=== PATIENT | female | born 1980 | race Caucasian/White ===

== ENCOUNTER → 2020-07-25 16:15 | Outpatient (BNVA) | payer OTHER, SELFPAY | PROVIDERS: Visit Provider Nurse Practitioner Family | DX: Z11.59 Encounter for screening for other viral diseases (principal) | CPT/HCPCS: 87635 ==

== ENCOUNTER → 2022-01-17 10:47 | Outpatient (BNVA) | payer MEDICAID, SELFPAY | PROVIDERS: Visit Provider Obstetrics & Gynecology | DX: Z34.90 Encounter for supervision of normal pregnancy, unspecified, unspecified trimester (principal) | CPT/HCPCS: 80307; 84315; 84443; 85025; 86592; 86762; 86803; 86850; 86900; 87077; 87086; 87184; 87340 ==

== ENCOUNTER → 2022-01-31 09:09 | Outpatient (BNVA) | payer MEDICAID, SELFPAY | PROVIDERS: Visit Provider Obstetrics & Gynecology | DX: O09.899 Supervision of other high risk pregnancies, unspecified trimester (principal); R87.619 Unspecified abnormal cytological findings in specimens from cervix uteri; Z3A.00 Weeks of gestation of pregnancy not specified | CPT/HCPCS: 84315; 87077; 87086; 87184 ==

== ENCOUNTER → 2022-02-14 09:07 | Outpatient (BNVA) | payer MEDICAID, OTHER, SELFPAY | PROVIDERS: Visit Provider Obstetrics & Gynecology | DX: O09.899 Supervision of other high risk pregnancies, unspecified trimester (principal) | CPT/HCPCS: 84315; 87077; 87086; 87184 ==

== ENCOUNTER 2022-03-21 17:17 | Outpatient (CLI) | payer MEDICAID, SELFPAY ==
[2022-03-21 17:20] VITALS: BMI 26.6
[2022-03-21 17:33] VITALS: BP 125/64; PULSE 86
[2022-03-21 17:35] VITALS: BP 121/69; PULSE 86
[2022-03-21 17:46] VITALS: RESP 16
--- NOTE | 2022-03-21 17:46 | USR_ITS ---
PROCEDURE INFORMATION: Exam: US , Limited Exam date and time: 03/21/2022 6:59 PM Age: 41 years old Clinical indication: Lmp or gestational age (in weeks): 20w 6d; Antepartum complications; Bleeding; ; Additional info: Placenta evaluation, leonardo, cervical length, please note distance of placenta to cervix. TECHNIQUE: Imaging protocol: Real-time ultrasound of the maternal uterus with image documentation. Exam focused on the clinical indication. COMPARISON: US OB <= 14 weeks fetus [facility] 01/10/2022 11:57 AM FINDINGS: Gestation: Single intrauterine , activity was not included on provided images. Placenta: Placenta appears somewhat low in position suggesting possible marginal placenta previa, consider follow-up exam for reassessment. Amniotic fluid index: Amniotic fluid index normal at 17.7. MATERNAL: Cervix: Cervix measures 4.4 cm in length as seen on series 1, image 83 with some fluid in the cervix suggesting possible cervical incompetence. US/US OB limited [id number] IMPRESSION: 1. Amniotic fluid index normal at 17.7. 2. Single intrauterine , activity was not included on provided images. 3. Cervix measures 4.4 cm in length as seen on series 1, image 83 with some fluid in the cervix suggesting possible cervical incompetence. 4. Placenta appears somewhat low in position suggesting possible marginal placenta previa, consider follow-up exam for reassessment.
[2022-03-21 18:03] LABS: Blood Urine Neg (Negative); Glucose Urine UA Norm (Normal); Ketones Urine Negative (Negative); Nitrate Urine Positive (Negative); Protein Urine Neg (Negative); Urine Appearance Clear (CLEAR); Urine Color Yellow (Yellow); pH Urine 5 (5-7)
[2022-03-21 18:04] LABS: Add Urine Culture? Yes; Bacteria Urine 4+ /hpf; Bilirubin Urine Neg (Negative); Leukocyte Esterase Urine Trace (Negative); RBC Urine 0-4 /hpf (0-2); Squamous Epithelial Cell Urine 0-4 /hpf (0-5); Urobilinogen Urine Norm (Negative); WBC Urine 0-4 /hpf (0-5)
== END 2022-03-21 20:19 | disposition home or self-care (01) ==
LOC: OPOB 17:28 → OBGYN 17:29
PROVIDERS: Visit Provider Obstetrics & Gynecology
DX: O46.90 Antepartum hemorrhage, unspecified, unspecified trimester (principal); Z3A.00 Weeks of gestation of pregnancy not specified
CPT/HCPCS: 76815; 81001; 87077; 87086; 87186; 99211

== ENCOUNTER → 2022-03-23 14:04 | Outpatient (BNVA) | payer MEDICAID, SELFPAY | PROVIDERS: Visit Provider Obstetrics & Gynecology | DX: O09.899 Supervision of other high risk pregnancies, unspecified trimester (principal); Z3A.00 Weeks of gestation of pregnancy not specified | CPT/HCPCS: 84315; 87077; 87086; 87184 ==

== ENCOUNTER 2022-03-30 14:44 | Outpatient (CLI) | payer MEDICAID, SELFPAY ==
--- NOTE | 2022-03-30 15:00 | US_ITS ---
WS: [id number] OBSTETRICAL ULTRASOUND COMPLETE HISTORY: O09.899 - Supervision of other high risk pregnancies, COMPARISON: 01/10/2022 and 03/21/2022 Single intrauterine gestation in variable presentation. Cervix is Closed and normal length. Cervical length is 4.6 cm. Normal amount of amniotic fluid surrounds the fetus. Placenta: Anterior and fundal. No previa or abruption. Placenta grade 1 Heart: 141 BPM. Four chambers are identified. RIGHT and LEFT outflow tracts are unremarkable. Anatomy: Intracranial structures and spine are normal. kidneys, stomach and urinary bladd er are unremarkable. Abdominal wall, three-vessel cord and cord insertion site are normal. 4 extremities are present. profile: Unremarkable. Gender: Male. measurements: BPD = 5.5 cm = 22w5d HC = 19.5 cm = 21w5d AC = 19.0 cm = 23w5d FL = 4.4 cm = 24w2d EFW: 618 g. Biometry is internally concordant. AGA by ultrasound: 23w1d ASA by ultrasound: 07/26/2022 US/US OB >= 14 weeks fetus [id number] IMPRESSION: 1. Single intrauterine gestation of 23w1d with an ASA of 07/26/2022. Appropria te growth since the first trimester ultrasound. 2. Unremarkable screening survey of anatomy.
== END 2022-03-30 14:45 | disposition home or self-care (01) ==
LOC: RAD 14:47
PROVIDERS: Visit Provider Obstetrics & Gynecology
DX: O09.899 Supervision of other high risk pregnancies, unspecified trimester (principal)
CPT/HCPCS: 76805; 84315; 87077; 87086; 87184

== ENCOUNTER 2022-04-05 15:02 | Outpatient (CLI) | payer MEDICAID, SELFPAY ==
[2022-04-06 00:29] LABS: Estmated Average Glucose 123; Hemoglobin A1C 5.9 % (4.0-6.0)
[2022-04-08 01:53] LABS: CARDIOLIPIN AB (IGA) <2.0 APL-U/mL; CARDIOLIPIN AB (IGG) <2.0 GPL-U/mL; CARDIOLIPIN AB (IGM) <2.0 MPL-U/mL
[2022-04-09 07:09] LABS: Beta 2 Glycoprotein IGA <2.0 U/mL (<20.0); Beta 2 Glycoprotein IGG <2.0 U/mL (<20.0); Beta 2 Glycoprotein IGM <2.0 U/mL (<20.0)
== END 2022-04-05 15:03 | disposition home or self-care (01) ==
LOC: LAB 15:04
PROVIDERS: Visit Provider Obstetrics & Gynecology
DX: N96 Recurrent pregnancy loss (principal)
CPT/HCPCS: 83036; 85613; 85730; 86146; 86147; 88262

== ENCOUNTER 2022-04-11 16:04 | Outpatient (CLI) | payer MEDICAID, SELFPAY ==
--- NOTE | 2022-04-11 16:00 | US_ITS ---
WS: [id number] LIMITED OBSTETRICAL ULTRASOUND HISTORY: O09.899 - Supervision of other high risk pregnancies, evaluate growth. COMPARISON: 01/10/2022, 03/30/2022 Presentation: Breech. Cervix: Closed and normal length. Placenta: Anterior, no previa or abruption. Grade: 1 HEART: FHR of 157 BPM. measurements: BPD = 6.2 cm = 25w1d HC = 23.1 cm = 25w1d AC = 20.5 cm = 25w1d FL = 4.6 cm = 25w1d Visually the EVELYNE appears normal. EFW: 772 g; 71 %. AGA by ultrasound: 25w1d ASA by ultrasound: 07/24/2022 [place] [id number] IMPRESSION: 1. Single intrauterine gestation of 25 weeks 1 day with an EDC of 07/24/2022. A ppropriate growth of the fetus since the first trimester ultrasound. No growth asymmetry. 2. Estimated weight at the 71st percentile for age.
== END 2022-04-11 16:05 | disposition home or self-care (01) ==
PROVIDERS: Visit Provider Obstetrics & Gynecology
DX: O09.899 Supervision of other high risk pregnancies, unspecified trimester (principal); Z3A.25 25 weeks gestation of pregnancy
CPT/HCPCS: 36415; 76816; 85613; 85730

== ENCOUNTER 2022-04-14 10:19 | Outpatient (CLI) | payer MEDICAID, SELFPAY ==
[2022-04-19 19:43] LABS: PTT-LA-Screen 38 sec (< OR = 40)
== END 2022-04-14 10:20 | disposition home or self-care (01) ==
LOC: LAB 10:22
PROVIDERS: Visit Provider Obstetrics & Gynecology
DX: N96 Recurrent pregnancy loss (principal)
CPT/HCPCS: 84315; 85613; 85730; 87077; 87086; 87184; 88262

== ENCOUNTER → 2022-05-12 08:21 | Outpatient (BNVA) | payer MEDICAID, SELFPAY | PROVIDERS: Visit Provider Obstetrics & Gynecology | DX: O09.899 Supervision of other high risk pregnancies, unspecified trimester (principal); Z3A.00 Weeks of gestation of pregnancy not specified | CPT/HCPCS: 82950; 84315; 84443; 85025; 87077; 87086; 87184; 87491; 87591; 87661 ==

== ENCOUNTER → 2022-05-26 11:15 | Outpatient (BNVA) | payer MEDICAID, SELFPAY | PROVIDERS: Visit Provider Obstetrics & Gynecology | DX: O09.899 Supervision of other high risk pregnancies, unspecified trimester (principal); Z3A.00 Weeks of gestation of pregnancy not specified | CPT/HCPCS: 84315; 87077; 87086; 87184 ==

== ENCOUNTER → 2022-06-09 13:45 | Outpatient (BNVA) | payer MEDICAID, SELFPAY | PROVIDERS: Visit Provider Obstetrics & Gynecology | DX: O09.899 Supervision of other high risk pregnancies, unspecified trimester (principal); Z3A.00 Weeks of gestation of pregnancy not specified | CPT/HCPCS: 84315; 87077; 87086; 87184 ==

== ENCOUNTER → 2022-06-16 14:10 | Outpatient (BNVA) | payer MEDICAID, SELFPAY | PROVIDERS: Visit Provider Obstetrics & Gynecology | DX: O09.899 Supervision of other high risk pregnancies, unspecified trimester (principal); O09.529 Supervision of elderly multigravida, unspecified trimester | CPT/HCPCS: 84315; 87077; 87086; 87184 ==

== ENCOUNTER → 2022-07-07 08:55 | Outpatient (BNVA) | payer MEDICAID, SELFPAY | PROVIDERS: Visit Provider Obstetrics & Gynecology | DX: O09.899 Supervision of other high risk pregnancies, unspecified trimester (principal); O09.529 Supervision of elderly multigravida, unspecified trimester; Z87.59 Personal history of other complications of pregnancy, childbirth and the puerperium; Z3A.00 Weeks of gestation of pregnancy not specified | CPT/HCPCS: 84315; 87077; 87081; 87086; 87184 ==

== ENCOUNTER → 2022-07-14 13:15 | Outpatient (BNVA) | payer MEDICAID, SELFPAY | PROVIDERS: Visit Provider Obstetrics & Gynecology | DX: O09.899 Supervision of other high risk pregnancies, unspecified trimester (principal); O09.529 Supervision of elderly multigravida, unspecified trimester; Z3A.00 Weeks of gestation of pregnancy not specified | CPT/HCPCS: 84315; 87077; 87086; 87184 ==

== ENCOUNTER → 2022-07-21 14:23 | Outpatient (BNVA) | payer MEDICAID, SELFPAY | PROVIDERS: Visit Provider Obstetrics & Gynecology | DX: O09.899 Supervision of other high risk pregnancies, unspecified trimester (principal); O09.529 Supervision of elderly multigravida, unspecified trimester; Z3A.00 Weeks of gestation of pregnancy not specified | CPT/HCPCS: 84315; 87077; 87086; 87184 ==

== ENCOUNTER 2022-07-27 09:15 | Inpatient (IN) | payer MEDICAID, SELFPAY ==
[2022-07-27] VITALS (26 sets, daily range): BP systolic 103–132; BP diastolic 55–78; PULSE 60–73; RESP 16; TEMP 36.1–36.6; BMI 29.1
[2022-07-27] MEDS: miSOPROStol 100 mcg tablet 25 MCG VAGINAL (07:55)
[2022-07-27 08:57] LABS: Basophils # 0.1 10^3/uL (0.0-0.1); Basophils % 0.6 %; Eosinophils # 0.2 10^3/uL (0.0-0.8); Eosinophils % 1.8 %; Hematocrit 30.4 % (37.0-47.0); Hemoglobin 10.6 g/dL (11.5-15.3); Lymphocytes # 2.3 10^3/uL (0.8-4.8); Lymphocytes % 27.8 %; Mean Corpuscular HGB Conc 34.9 g/dL (30.0-36.0); Mean Corpuscular Hemoglobin 32.1 pg (28.0-34.0); Mean Corpuscular Volume 92.1 fl (81-99); Mean Platelet Volume 11.6 fL (7.4-10.4); Monocytes # 0.5 10^3/uL (0.2-0.9); Monocytes % 5.7 %; Neutrophils # 5.29 10^3/uL (1.8-7.7); Neutrophils % 63.1 %; Nucleated Red Blood Cells % 0 %; Platelet Count 197 10^3/cmm (130-400); Red Cell Distribution Width 13.3 % (12.1-15.1); White Blood Count 8.4 10^3/uL (4.0-10.0)
[2022-07-27] MEDS: amoxicillin-clav 500-125 mg Tablet 1 TAB PO ×3 (08:58→21:52)
[2022-07-27] MEDS: dextrose 5%-lactated ringers 1,000 ML 125 ML IV ×3 (10:14→23:22)
--- NOTE | 2022-07-27 11:09 | PM.OPHPUD ---
Labor & Delivery H&P Update Date of Procedure: July 27, 2022 Date H&P Performed: 07/21/22 H&P update information: I have reviewed H&P completed within last 30 days, I have examined patient prior to procedure and No changes to prior documentation Changes to previous documentation: The patient presents for induction at term. Admission Diagnosis: Related Problem List Diagnoses (1) LGSIL (low grade squamous intraepithelial dysplasia): (2) History of prior with IUGR : (3) AMA (advanced maternal age) multigravida 35+: (4) Recurrent loss: (5) Supervision of other high-risk : (6) Tobacco abuse:
[2022-07-27] MEDS: oxytocin 30 UNIT/500 ML BAG IV (12:30)
[2022-07-27] MEDS: ondansetron 2 mg/ML SDV 2 mL 4 MG IVP (23:59)
[2022-07-28] VITALS (83 sets, daily range): BP systolic 90–157; BP diastolic 53–84; PULSE 57–153; RESP 15–17; TEMP 35.9–36.6; O2SAT 90–99
[2022-07-28] MEDS: dextrose 5%-lactated ringers 1,000 ML 125 ML IV ×2 (07:28→17:27)
[2022-07-28] MEDS: amoxicillin-clav 500-125 mg Tablet 1 TAB PO ×2 (09:16→16:17)
[2022-07-28] MEDS: oxytocin 30 UNIT/500 ML BAG 31 UNIT IV (10:06)
[2022-07-28] MEDS: fentaNYL 50 mcg/mL INJ 2mL IVP (11:10)
[2022-07-28] MEDS: lactated ringers 1,000 ML 999 ML IV (12:29)
[2022-07-28] MEDS: lactated ringers 1,000 ML 500 ML IV (13:32)
--- NOTE | 2022-07-28 13:40 | ANES.PREANE2 ---
Pre-Anesthetic Assessment Height/Weight: Height 1.65 m Weight 79.379 kg Temp Pulse Resp BP Pulse Ox O2 Del Method 96.6 F L 68 16 108/61 96 07/28/22 12:04 07/28/22 13:36 07/28/22 11:10 07/28/22 13:36 07/28/22 13:34 07/27/22 08:17 Preop Diagnosis: IUP Epidural Familial anesthetic complications: None Social Tobacco and No alcohol Exam alert, oriented x 3, clear to auscultation bilaterally and regular rate & rhythm Airway Mallampati: Class II Dentition: full Anesthetic Plan ASA status: 2 Anesthesia: Regional (specify below) Risk of > 500 ml blood loss (7ml/kg in children): Yes, adequate IV access and fluids planned Medications/Allergies Home Medications Medication Instructions Recorded Confirmed Last Taken Type PNV 153-FA 400 mcg-om3 35 mg-dha tab PO 01/17/22 07/21/22 Unknown History 25 mg-epa 5 mg-fish oil chew tablet ( Gummies) aspirin 81 mg tablet,delayed 81 mg PO DAILY 02/14/22 07/21/22 Unknown History release (Adult Low Dose Aspirin) cephalexin 500 mg capsule 500 mg PO TID #30 caps 06/13/22 07/21/22 Unknown Rx amoxicillin 500 mg-potassium 1 tab PO BID #20 tabs 07/10/22 07/21/22 Unknown Rx clavulanate 125 mg tablet (Augmentin) cephalexin 500 mg capsule 500 mg PO TID #30 caps 07/25/22 Unknown Rx Allergies Allergy/AdvReac Type Severity Reaction Status Date / Time cranberry Allergy Severe ALGY-Anaphy Verified 07/21/22 15:28 laxis morphine Allergy Intermediate difficulty Verified 07/21/22 15:28 breathing Current Medications Generic Name Dose Route Start Last Admin Trade Name Freq PRN Reason Stop Dose Admin Amoxicillin/Clavulanate Potassium 1 tab 07/27/22 09:00 07/28/22 09:16 Amoxicillin-Clav 500-125 Mg Tablet PO 1 tab TID BRIJESH Administration Protocol Fentanyl 25 - 100 mcg 07/27/22 07:27 07/28/22 11:10 Fentanyl 50 Mcg/Ml Inj 2ml IVP 25 mcg Q1H PRN Administration SEVERE PAIN Dextrose/Lactated Ringer's 1,000 mls @ 125 mls/hr 07/27/22 07:30 07/28/22 12:29 Dextrose 5%-Lactated Ringers IV Infused .Q8H BRIJESH Infusion Oxytocin 30 unit in 500 mls @ 1 mls/hr 07/27/22 12:15 07/28/22 11:00 Pitocin IV 33 milliunit/min .Q24H BRIJESH 33 mls/hr Titration Protocol 1 MILLIUNIT/MIN Ropivacaine 200 mg in 100 mls @ 13 mls/hr 07/27/22 14:00 07/28/22 13:32 Naropin Premix EPIDURAL 13 mls/hr .Q7H42M BRIJESH Administration Lactated Ringer's 1,000 mls @ 999 mls/hr 07/27/22 13:55 07/28/22 13:32 Lactated Ringers IV 500 mls/hr .Q1H1M PRN Administration See label comments Ondansetron HCl 4 mg 07/27/22 07:27 07/27/22 23:59 Ondansetron 2 Mg/Ml Sdv 2 Ml IVP 4 mg Q4H PRN Administration NAUSEA AND VOMITING PFSH Anesthesia Medical History No pertinent past medical history Surgical History History of D&C History of kidney surgery 3/4 of right kidney removed History of tonsillectomy and adenoidectomy Family History Mother Cancer colon Grandmother Cancer maternal- stomach Grandmother Stroke maternal Other Clotting disorder Denies family history of Diabetes Hyperlipidemia Bleeding disorder Hypertension Thyroid disease Social History Smoking and tobacco status: current every day smoker Female Reproductive History : 24 Data Anesthesia : 07/27/22 07:40 Short CBC 07/27/22 Range/Units 07:40 WBC 8.4 (4.0-10.0) 10^3/uL Hgb 10.6 L (11.5-15.3) g/dL Hct 30.4 L (37.0-47.0) % MCV 92.1 (81-99) fl Plt Count 197 (130-400) 10^3/cmm Neut % (Auto) 63.1 % Neut # (Auto) 5.29 (1.8-7.7) 10^3/uL Cardiac Studies: No Data to Display
--- NOTE | 2022-07-28 13:41 | ANES.PROC ---
Anesthesia Procedures Procedure/Date: 07/28/22 Epidural: Time Out Performed: Yes Consents Signed: Procedure Consent Consent: requested by attending/covering physician, from patient, risks and benefits reviewed and patient agrees to proceed Lumbar Level: L3-L4 Epidural position: sitting Epidural procedure: sterile prep of area, 1% lidocaine to numb the area, 18 g needle, negative for paresthesia passed, neg for paresthesia, test dose given, 1.5% xylocaine 1:200k epi (5 ml (divided dose)), 0.2% Ropivacaine bolus ml (5), placed PCEA, no systemic response, sterile dressing applied, L.U.D. no apparent complications and 0.2% Ropiavacaine @ mls/hr (13) Additional Comments: MAYNOR at 4 cm, threaded to 10 cm. Patient reported subsequent pain free contraction
[2022-07-28] MEDS: lidocaine 2% INJ 20 mL INJECTION (20:18)
--- NOTE | 2022-07-28 20:34 | PM.DELIVERY ---
Delivery Note: Date of delivery: July 28, 2022 Pre-delivery diagnoses: iup@39w2d, history of IUGR, tobacco abuse, recurrent uti Post-delivery diagnoses: same-delivered Procedure: - delivered Delivering Physician: Justin Estimated blood loss (mL): 20 Findings: term male in the PRINCESS presentation with a double nuchal cord and body cord Pre-Delivery Course: The patient was admitted for induction at term. She received 1 dose of cytotec and began having frequent contractions. pitocin was started. She received an epidural for pain management. She had AROM and the some time later had complete cervical dilation and began pushing. Delivery: The patient had complete cervical dilation and began to push. As the head was at +2 station, the heart tones dropped to the 50's. An episiotomy was cut and the patient was asked to push continuously. The head delivered in the PRINCESS position over a second degree episiotomy under epidural anesthesia. There was a double nuchal cord and a body cord. The shoulders and body delivered atraumatically. The baby was placed onto the mother's abdomen. The nose and mouth were bulb suction. The cord was clamped and cut. The placenta delivered spontaneously. It was inspected and found to be intact. Inspection of the perineum revealed there was no extension of the episiotomy and it was repaired in the usual fashion. Estimated blood loss 20 mL. Apgars on baby were 8 at 1 minute and 9 at 5 minutes. Weight of baby is 7 pounds 13 ounces. Mother and baby were stable post delivery. History History History 26 Term 2 2 Miscarriages/Ectopic 21 Living Children 4 Coding Level of Care Code Acute [employer] for Chg Abida
[2022-07-28] MEDS: miSOPROStol 200 mcg Tablet 800 MCG PR (21:24)
[2022-07-28] MEDS: methylergonovine 0.2 mg/mL INJ 1 mL IM (21:26)
[2022-07-28] MEDS: cephALEXin 500 mg Capsule PO (21:49)
[2022-07-28] MEDS: oxytocin 30 UNIT/500 ML BAG 600 UNIT IV (21:50)
[2022-07-29] VITALS (11 sets, daily range): BP systolic 112–139; BP diastolic 56–72; PULSE 71–83; RESP 16; TEMP 36.8; O2SAT 99
[2022-07-29] MEDS: amoxicillin-clav 500-125 mg Tablet 1 TAB PO (11:12)
[2022-07-29] MEDS: prenatal vitamin Capsule 1 CAP PO (11:12)
[2022-07-29] MEDS: ibuprofen 800 mg tablet PO (11:13)
[2022-07-29] MEDS: docusate sodium 100 mg Capsule PO (11:13)
--- NOTE | 2022-07-29 11:30 | PC.NURSE ---
Education provided on engorgement, when patient is likely to experience it, what she can do to decrease discomfort (firm fitting bra, cool packs, and Ibuprofen per package directions), discussed how long engorgement lasts. Educated on hand expression/ pumping to relieve discomfort.
[2022-07-29 11:40] LABS: Hematocrit 26.3 % (37.0-47.0); Hemoglobin 8.7 g/dL (11.5-15.3); Mean Corpuscular HGB Conc 33.1 g/dL (30.0-36.0); Mean Corpuscular Hemoglobin 30.9 pg (28.0-34.0); Mean Corpuscular Volume 93.3 fl (81-99); Mean Platelet Volume 11.4 fL (7.4-10.4); Platelet Count 156 10^3/cmm (130-400); Red Blood Count 2.82 10^6/uL (4.1-5.3); Red Cell Distribution Width 13.2 % (12.1-15.1); White Blood Count 12.2 10^3/uL (4.0-10.0)
--- NOTE | 2022-07-29 14:34 | ANE.PACU2 ---
Inpatient post-anesthesia follow up: Airway intact: Yes Vital signs: Temperature 98.3 F Pulse Rate 83 Respiratory Rate 16 Blood Pressure 114/72 Pulse Oximetry 99 Oxygen Delivery Me thod Room Air Oxygen Flow Rate Fraction of Inspir ed Oxygen Hydration adequate: Yes Nausea and vomiting: No Pain level: 1 Mental status: Baseline
--- NOTE | 2022-07-29 17:30 | P.DS_ITS ---
Discharge Providers Date of Admission: 07/27/22 09:15 Date of Discharge: July 29, 2022 Attending Provider at Admission: Linda Anderson MD Attending Provider at Discharge: Linda Anderson MD Diagnoses at Discharge Discharge Diagnosis (1) LGSIL (low grade squamous intraepithelial dysplasia): Status: Acute (2) History of prior with IUGR : Status: Acute (3) AMA (advanced maternal age) multigravida 35+: Status: Acute (4) Recurrent loss: Status: Acute (5) Supervision of other high-risk : Status: Acute (6) Tobacco abuse: Status: Acute Reason for Visit Reason for Visit: IOL Hospital Course Hospital Course The patient was admitted for induction of labor at term. She had spontaneous delivery of a term male . she did well and was ready for discharge on day #1 Physical Exam Const: COMMON NORMALS: no acute distress and average body habitus GENERAL APPEARANCE: cooperative, comfortable, well kempt and well developed ORIENTATION/CONSCIOUSNESS: Yes awake, Yes oriented to person, Yes oriented to place and Yes oriented to time Resp: COMMON NORMALS: normal respiratory effort EFFORT & INSPECTION: Yes able to speak in complete sentences GI: COMMON NORMALS: Soft to palpation and non-tender PALPATION: Yes Soft to palpation Extremity: COMMON NORMALS: no calf tenderness Neuro: SENSORIUM/ORIENTATION: Yes oriented to person, Yes oriented to place and Yes oriented to time Psych: APPEARANCE: Yes well kempt Urinary Catheter Management: Chambers Latex: Cath Placed During This Visit: yes, but has since been removed by the nurse Reason for Continuing Indwelling Catheter: Decision to DC Catheter Urinary Catheter Date of Insertion: 07/28/22 Urinary Catheter Time of Insertion: 13:52 Date Urinary Catheter Removed: 07/28/22 Time Urinary Catheter Discontinued: 17:40 Discharge Data Studies Completed and Pending Laboratory Results WBC 12.2 10^3/uL (4.0-10.0) H 07/29/22 11:10 RBC 2.82 10^6/uL (4.1-5.3) L 07/29/22 11:10 Hgb 8.7 g/dL (11.5-15.3) L 07/29/22 11:10 Hct 26.3 % (37.0-47.0) L 07/29/22 11:10 MCV 93.3 fl (81-99) 07/29/22 11:10 MCH 30.9 pg (28.0-34.0) 07/29/22 11:10 MCHC 33.1 g/dL (30.0-36.0) 07/29/22 11:10 RDW 13.2 % (12.1-15.1) 07/29/22 11:10 Plt Count 156 10^3/cmm (130-400) 07/29/22 11:10 MPV 11.4 fL (7.4-10.4) H 07/29/22 11:10 Neut % (Auto) 63.1 % 07/27/22 07:40 Lymph % (Auto) 27.8 % 07/27/22 07:40 [place] % (Auto) 5.7 % 07/27/22 07:40 Eos % (Auto) 1.8 % 07/27/22 07:40 Baso % (Auto) 0.6 % 07/27/22 07:40 Neut # (Auto) 5.29 10^3/uL (1.8-7.7) 07/27/22 07:40 Lymph # (Auto) 2.3 10^3/uL (0.8-4.8) 07/27/22 07:40 [place] # (Auto) 0.5 10^3/uL (0.2-0.9) 07/27/22 07:40 Eos # (Auto) 0.2 10^3/uL (0.0-0.8) 07/27/22 07:40 Baso # (Auto) 0.1 10^3/uL (0.0-0.1) 07/27/22 07:40 Nucleated RBC % (auto) 0 % 07/27/22 07:40 Nucleated RBCs # 0.0 /100WBC 07/27/22 07:40 Vitals Last Vital Signs Temp 98.2 F 07/29/22 04:48 Pulse 74 07/29/22 04:48 Resp 16 07/29/22 04:48 BP 114/64 07/29/22 04:48 Pulse Ox 98 07/28/22 14:04 O2 Del Method 07/27/22 08:17 Discharge Plan Discharge Patient Disposition: Home Condition: Stable Prescriptions: Continued Gummies 400 mcg-35 mg- 25 mg-5 mg tablet,chewable PO aspirin [Adult Low Dose Aspirin] 81 mg tablet,delayed release (DR/EC) 81 mg PO DAILY cephalexin 500 mg capsule 500 mg PO TID Qty: 30 0RF amoxicillin-pot clavulanate [Augmentin] 500-125 mg tablet 1 tab PO BID Qty: 20 0RF cephalexin 500 mg capsule 500 mg PO TID Qty: 30 0RF Discharge Orders: Discharge Order (Routine); Ordered 07/29/22 Ordered By: Linda Anderson Referrals: Linda Anderson MD [Physician] - ([facility] Monday to schedule your follow up appointments.) Discharge Diet: As Directed Discharge Activity: Resume usual activity Patient Instructions: Depression (GEN), Perineal Care (DC), Preeclampsia and Eclampsia After Delivery (GEN), OB Food/Drug Interaction Guide, OB Home Care Instructions, OB Care at Home, Opioid Safety, OB Home Care, OB Proud Parent Packet, OB Vaginal Deliveries - [facility], Ab normal Bleeding Discharge Attestations Time Spent in Discharge Care*: less than 30 min Quality Metrics Clinical Quality Measures [ No reported AMI, CVA or VTE this stay] Coding Level of Care Code Acute Chg FW DC note Exam Problem Focused Diagnoses LGSIL (low grade squamous intraepithelial dysplasia) History of prior with IUGR Z87.59 AMA (advanced maternal age) multigravida 35+ O09.529 Recurrent loss N96 Supervision of other high-risk O09.899 Tobacco abuse Z72.0
== END 2022-07-29 19:49 | disposition home or self-care (01) | DRG 807 ==
LOC: OPOB 09:15 → OBGYN 09:15
PROVIDERS: Admitting Provider Obstetrics & Gynecology; Visit Provider Obstetrics & Gynecology
DX: O99.334 Smoking (tobacco) complicating childbirth (principal); Z37.0 Single live birth; F17.210 Nicotine dependence, cigarettes, uncomplicated; O69.81X0 Labor and delivery complicated by cord around neck, without compression, not applicable or unspecified; Z3A.39 39 weeks gestation of pregnancy; Z87.59 Personal history of other complications of pregnancy, childbirth and the puerperium
CPT/HCPCS: 36415; 51702; 59025; 59409; 85025; 85027; 96372; 96374; 99211; J2210; J2405; J2795; J3010